=== PATIENT | female | born 1970 | race Caucasian/White ===

== ENCOUNTER → 2019-06-29 09:03 | Outpatient (BNVA) | payer OTHER, SELFPAY | PROVIDERS: Family Provider Nurse Practitioner Family; Visit Provider Nurse Practitioner Family | DX: R53.83 Other fatigue (principal) | CPT/HCPCS: 84443 ==

== ENCOUNTER 2019-10-26 15:55 | Outpatient (CLI) | payer BC, SELFPAY ==
--- NOTE | 2019-10-26 16:04 | XRR_ITS ---
PROCEDURE INFORMATION: Exam: XR Right Shoulder Exam date and time: 10/26/2019 4:26 PM Age: 49 years old Clinical indication: Pain; Shoulder; Right; Patient HX: No know trauma; Additional info: Shoulder pain rbto bell young/telma/katie aponte rtrm TECHNIQUE: Imaging protocol: XR Right shoulder. Views: 2 or more views. COMPARISON: No relevant prior studies available. FINDINGS: Bones/joints: There is no acute fracture or dislocation. The acromioclavicular joint alignment is appropriate. The subacromial joint space is well-preserved. The glenohumeral joint is unremarkable. The visualized ribs are intact. Lungs: The visualized lung apex is clear. Soft tissues: No calcific tendinopathy. XR/XR shoulder RT min 2V* [id number] IMPRESSION: No acute bony abnormality.
== END 2019-10-26 15:56 | disposition home or self-care (01) ==
LOC: RAD 16:00
PROVIDERS: Family Provider Nurse Practitioner Family; Visit Provider Nurse Practitioner Family
DX: M25.511 Pain in right shoulder (principal)
CPT/HCPCS: 73030

== ENCOUNTER → 2020-03-21 09:57 | Outpatient (BNVA) | payer BC, SELFPAY | PROVIDERS: Family Provider Nurse Practitioner Family; Visit Provider Nurse Practitioner Family | DX: R10.9 Unspecified abdominal pain (principal); R10.2 Pelvic and perineal pain | CPT/HCPCS: 81000; 85025 ==

== ENCOUNTER 2020-04-06 07:48 | Outpatient (CLI) | payer BC, SELFPAY ==
--- NOTE | 2020-04-06 08:00 | US_ITS ---
WS: [id number] Complete ABDOMINAL ULTRASOUND HISTORY: R10.9 - Unspecified abdominal pain COMPARISON: 01/26/2019 Liver: 13.1 cm in length. Liver is normal size and echogenicity with no mass or intrahepatic dilatati on. Gallbladder: Prior cholecystectomy. Pancreas: Normal size and echogenicity. CBD: 0.9 cm. Right kidney: 9.9 cm x 4.4 cm x 4.0 cm. No mass, cortical thickening or hydronephrosis. Left kidney: 10.3 cm x 5.0 cm x 6.5 cm. No mass, cortical thickening or hydronephrosis. Spleen: Not visualized. Abdominal aorta and IVC are within normal limits. No ascites. US/US abdomen complete* [id number] IMPRESSION: 1. Prior cholecystectomy. Mild physiologic dilatation of the common bile duct. 2. Spleen is not identified. Probably obscured by GI content.
--- NOTE | 2020-04-06 08:45 | US_ITS ---
WS: [id number] TRANSABDOMINAL PELVIC AND TRANSVAGINAL PELVIC ULTRASOUND HISTORY: R10.2 - Pelvic and perineal pain COMPARISON: None available. Prior hysterectomy. Right ovary: 1.0 cm x 0.9 cm x 0.6 cm. Very small caliber RIGHT ovary as expected. No solid mass. Nor mal vascularity. Left ovary: Not visualized. No adnexal mass. No free fluid. US/US pelvic with transvaginal IMPRESSION: 1. Status post hysterectomy. No pelvic masses. 2. Small atrophic RIGHT ovary. LEFT ovary is not identified.
== END 2020-04-06 07:49 | disposition home or self-care (01) ==
LOC: US 07:53
PROVIDERS: PCP Nurse Practitioner Family; Visit Provider Nurse Practitioner Family
DX: R10.9 Unspecified abdominal pain (principal); R10.2 Pelvic and perineal pain; Z90.710 Acquired absence of both cervix and uterus; N83.311 Acquired atrophy of right ovary; Z90.49 Acquired absence of other specified parts of digestive tract
CPT/HCPCS: 76700; 76830; 76856

== ENCOUNTER → 2020-04-11 15:15 | Outpatient (BNVA) | payer BC, SELFPAY | PROVIDERS: PCP Nurse Practitioner Family; Visit Provider Nurse Practitioner Family | DX: R10.811 Right upper quadrant abdominal tenderness (principal) | CPT/HCPCS: 82977; 83615; 84450; 84460 ==

== ENCOUNTER → 2020-05-11 09:53 | Outpatient (BNVA) | payer BC, SELFPAY | PROVIDERS: PCP Nurse Practitioner Family; Visit Provider Dermatology | DX: Z13.6 Encounter for screening for cardiovascular disorders (principal) | CPT/HCPCS: 80061; 82947; 82977; 83036; 83615; 84450; 84460 ==

== ENCOUNTER 2020-05-19 07:55 | Outpatient (CLI) | payer BC, SELFPAY ==
--- NOTE | 2020-05-19 08:00 | CT_ITS ---
WS: [id number] CT ABDOMEN PELVIS TECHNIQUE: Contrast-enhanced CT of the abdomen and pelvis with coronal and sagittal reformatted image s. CLINICAL INFORMATION: R BACK PAIN S/P CHOLECYSTECTOMY COMPARISON: Ultrasound March 2020 DLP: 1100.[address] scans at [facility] use at least one of these dose optimization techniques: automat ed exposure control; mA and/or kV adjustment per patient size (includes targeted exams where dose is matched to clinical indication); or iterative reconstruction. FINDINGS: Postoperative changes cholecystectomy. Prior hysterectomy and appendectomy. Mild diffuse fatty infilt ration liver. Normal portal vein and splenic vein. No fluid in the gallbladder fossa. Normal tapering of the common bile duct. Pancreatic head is normal in appearance. Normal portal veins and splenic ve in. Lung bases are well aerated. Normal spleen. Adrenal glands are normal. Normal renal parenchymal enhan cement. No hydronephrosis. Tiny right renal cysts. Normal caliber abdominal aorta. No abdominal lymphadenopathy. Tiny fat-containing umbilical hernia. S cattered stool in the colon. No evidence of large or small bowel obstruction. Urine distended bladder . No free fluid in the pelvis. Normal lumbar spine. CT/CT abdomen pelvis w con* [id number] IMPRESSION: 1. Postoperative changes cholecystectomy. No fluid in the gallbladder fossa. N ormal tapering of the common bile duct. 2. Mild diffuse fatty infiltration of the liver. 3. Prior postoperative changes hysterectomy and appendectomy. 4. Mild constipation. No evidence of small or large bowel obstruction. 5. No free fluid in the pelvis.
[2020-05-19] MEDS: iohexol 300 mg/mL 50 mL Btl PO (08:40)
[2020-05-19] MEDS: iohexol 300 mg/mL 100 mL Btl IV (09:32)
== END 2020-05-19 07:56 | disposition home or self-care (01) ==
LOC: RADWPI 08:04
PROVIDERS: PCP Nurse Practitioner Family; Visit Provider Surgery
DX: K59.00 Constipation, unspecified (principal); K76.0 Fatty (change of) liver, not elsewhere classified; Z90.49 Acquired absence of other specified parts of digestive tract
CPT/HCPCS: 74177; Q9967

== ENCOUNTER 2020-11-10 08:01 | Outpatient (CLI) | payer BC, SELFPAY ==
--- NOTE | 2020-11-10 08:00 | USCV_ITS ---
Rose Gamino Age: 50 Gender: F : 1970 Exam Date: 11/10/2020 08:18 Ordering Phys: Louisa Miguel Technologist: Tiffany Andrea Exam Location: [facility] [place]ication: PAINFUL SWELLING LEGS HISTORY: History of superficial thrombus Lt lower leg. Bilateral leg swelling with pain at this time PROCEDURES: The venous duplex Doppler examination of both lower extremities was performed in the standard fashion. The following venous structures were evaluated: common femoral vein, profunda vein, proximal portion of the greater saphenous vein, superficial femoral vein, and the popliteal vein. In addition, the posterior tibial and peroneal trunk were evaluated. Serial compression, augmentation maneuvers, and spectral Doppler flow evaluation were performed. FINDINGS: Normal 2-D Doppler and augmentation and compressibility throughout the lower extremity venous structures. Additional imaging through the proximal calf veins also reveals no thrombus. Limited evaluation of the greater saphenous vein is patent with no thrombus. CONCLUSIONS No DVT bilateral lower extremities. Dr. Tonja Torres DO (Electronically Signed) Final Date: 10 November 2020 09:56 S
== END 2020-11-10 08:02 | disposition home or self-care (01) ==
PROVIDERS: PCP Nurse Practitioner Family; Visit Provider Nurse Practitioner Family
DX: I82.409 Acute embolism and thrombosis of unspecified deep veins of unspecified lower extremity (principal)
CPT/HCPCS: 93970

== ENCOUNTER → 2020-12-05 09:13 | Outpatient (BNVA) | payer BC, SELFPAY | PROVIDERS: PCP Nurse Practitioner Family; Visit Provider Nurse Practitioner Family | DX: I83.813 Varicose veins of bilateral lower extremities with pain (principal); Z79.899 Other long term (current) drug therapy | CPT/HCPCS: 80053; 80061; 86140 ==

== ENCOUNTER → 2021-04-05 11:44 | Outpatient (BNVA) | payer BC, SELFPAY | PROVIDERS: PCP Nurse Practitioner Family; Visit Provider Nurse Practitioner Family | DX: R05.9 Cough, unspecified (principal); Z20.822 Contact with and (suspected) exposure to COVID-19 | CPT/HCPCS: 87486; 87581; 87633; 87635 ==

== ENCOUNTER 2021-04-10 13:06 | Outpatient (CLI) | payer SELFPAY ==
[2021-04-10 08:55] VITALS: BMI 21.4
[2021-04-10 15:10] VITALS: BP 110/61; PULSE 85; RESP 16; TEMP 36.7; O2SAT 97
== END 2021-04-10 13:07 | disposition home or self-care (01) ==
LOC: OPS 13:07
PROVIDERS: PCP Nurse Practitioner Family; Visit Provider Nurse Practitioner Family
DX: U07.1 COVID-19 (principal)
CPT/HCPCS: 96365

== ENCOUNTER → 2022-02-19 10:36 | Outpatient (BNVA) | payer OTHER, SELFPAY | PROVIDERS: PCP Nurse Practitioner Family; Visit Provider Nurse Practitioner Family | DX: J02.0 Streptococcal pharyngitis (principal) | CPT/HCPCS: 87880 ==

== ENCOUNTER → 2023-04-04 08:30 | Outpatient (BNVA) | payer OTHER, SELFPAY | PROVIDERS: PCP Nurse Practitioner Family; Visit Provider Nurse Practitioner Family | DX: S16.1XXA Strain of muscle, fascia and tendon at neck level, initial encounter (principal); K58.1 Irritable bowel syndrome with constipation; F41.9 Anxiety disorder, unspecified; I10 Essential (primary) hypertension; E78.5 Hyperlipidemia, unspecified; R53.83 Other fatigue; Z12.4 Encounter for screening for malignant neoplasm of cervix; R32 Unspecified urinary incontinence; Z00.00 Encounter for general adult medical examination without abnormal findings; Z78.9 Other specified health status; N81.11 Cystocele, midline; X58.XXXA Exposure to other specified factors, initial encounter | CPT/HCPCS: 80053; 80061; 85025; 87070; 87205; 88175 ==

== ENCOUNTER 2023-04-29 08:01 | Outpatient (CLI) | payer OTHER, SELFPAY ==
--- NOTE | 2023-04-29 08:04 | MM_ITS ---
WS: [id number] BILATERAL SCREENING DIGITAL BREAST MAMMOGRAPHY WITH SHANNAN DISPLACEMENT VIEWS. CAD PERFORMED. HISTORY: Z12.39 - Encounter for other screening for malignant neop... COMPARISON: 01/30/2017 Bilateral craniocaudal and mediolateral oblique views are performed with tomosynthesis and SM. Shannan displacement views in CC and MLO projection also performed. Breasts composition: There are scattered areas of fibroglandular density. Implants are intact. No capsular contraction. No extravasation or collapse. No suspicious masses or c alcifications within either breast. IMPRESSION: MM/[place] [id number] BI-RADS: 2-Benign FOLLOW-UP: 1 Year Follow-up
== END 2023-04-29 08:02 | disposition home or self-care (01) ==
LOC: RAD 08:01
PROVIDERS: PCP Nurse Practitioner Family; Visit Provider Nurse Practitioner Family
DX: Z12.39 Encounter for other screening for malignant neoplasm of breast (principal); R92.323 Mammographic fibroglandular density, bilateral breasts
CPT/HCPCS: 77063; 77067

== ENCOUNTER → 2023-08-16 10:58 | Outpatient (BNVA) | payer OTHER, SELFPAY | PROVIDERS: PCP Nurse Practitioner Family; Visit Provider Nurse Practitioner Family | DX: I10 Essential (primary) hypertension (principal); E78.5 Hyperlipidemia, unspecified | CPT/HCPCS: 80053; 80061 ==

== ENCOUNTER → 2023-08-26 08:32 | Outpatient (BNVA) | payer OTHER, SELFPAY | PROVIDERS: PCP Nurse Practitioner Family; Visit Provider Nurse Practitioner Family | DX: E78.2 Mixed hyperlipidemia (principal) | CPT/HCPCS: 80061 ==

== ENCOUNTER → 2023-12-02 08:51 | Outpatient (BNVA) | payer OTHER, SELFPAY | PROVIDERS: PCP Nurse Practitioner Family; Visit Provider Nurse Practitioner Family | DX: E78.2 Mixed hyperlipidemia (principal) | CPT/HCPCS: 80061 ==

== ENCOUNTER → 2025-01-18 07:38 | Outpatient (BNVA) | payer OTHER, SELFPAY | PROVIDERS: PCP Nurse Practitioner Family; Visit Provider Nurse Practitioner Family | DX: R53.83 Other fatigue (principal); I10 Essential (primary) hypertension; R00.2 Palpitations; E78.2 Mixed hyperlipidemia | CPT/HCPCS: 80053; 80061; 84439; 84443; 85025 ==

== ENCOUNTER 2025-01-22 16:29 | Outpatient (CLI) | payer OTHER, SELFPAY ==
--- NOTE | 2025-01-22 16:35 | XRR_ITS ---
PROCEDURE INFORMATION: Exam: XR Cervical Spine Exam date and time: 01/22/2025 4:41 PM Age: 54 years old Clinical indication: Pain; Cervicalgia; Additional info: M54.2 - cervicalgia TECHNIQUE: Imaging protocol: Radiologic exam of the cervical spine. Views: 2 or 3 views. COMPARISON: CR XR shoulder RT min 2V* [id number] 10/26/2019 4:22 PM FINDINGS: Bones/joints: The C5-C6 and C6-C7 levels demonstrate severe degenerative disc disease. 1.5 mm of C5 retrolisthesis relative to C4. No malalignment. No fracture or dislocation. Soft tissues: Unremarkable. XR/XR cervical spine 3V* [id number] IMPRESSION: 1. The C5-C6 and C6-C7 levels demonstrate severe degenerative disc disease. 2. No fracture or dislocation.
== END 2025-01-22 16:30 | disposition home or self-care (01) ==
LOC: RAD 16:30
PROVIDERS: PCP Nurse Practitioner Family; Visit Provider Nurse Practitioner Family
DX: M50.322 Other cervical disc degeneration at C5-C6 level (principal); M50.323 Other cervical disc degeneration at C6-C7 level
CPT/HCPCS: 72040

== ENCOUNTER 2025-01-25 15:56 | Outpatient (CLI) | payer OTHER, SELFPAY ==
--- NOTE | 2025-01-25 16:00 | US_ITS ---
WS: [id number] THYROID ULTRASOUND HISTORY: Low T4 levels. COMPARISON: 01/30/2018 Right lobe: 0.9 cm x 0.9 cm x 3.7 cm (w x ap x l). Volume: 1.3 cm3. Small caliber heterogeneous gland. No mass or increased vascularity. Margins are slightly lobulated. There is a small colloid cyst in the posterior gland measuring 2 mm. Left lobe: 1.2 cm x 0.7 cm x 3.4 cm (w x ap x l). Volume: 1.3 cm3. Small caliber gland. Heterogeneous gland with a few small colloid cysts. No dominant nodule. No echogenic foci. Isthmus: 0.2 cm. US/US thyroid [id number] IMPRESSION: TI-RADS 2; no FNA or follow-up necessary. Stable thyroid ultrasound since 01/30
== END 2025-01-25 15:57 | disposition home or self-care (01) ==
LOC: RAD 15:58
PROVIDERS: PCP Nurse Practitioner Family; Visit Provider Nurse Practitioner Family
DX: R79.89 Other specified abnormal findings of blood chemistry (principal); E04.2 Nontoxic multinodular goiter
CPT/HCPCS: 76536

== ENCOUNTER → 2025-02-16 08:46 | Outpatient (BNVA) | payer OTHER, SELFPAY | PROVIDERS: PCP Nurse Practitioner Family; Visit Provider Nurse Practitioner Family | DX: R03.0 Elevated blood-pressure reading, without diagnosis of hypertension (principal); R00.2 Palpitations | CPT/HCPCS: 80053; 84439; 84443 ==

== ENCOUNTER → 2025-02-25 17:24 | Outpatient (BNVA) | payer OTHER, SELFPAY | PROVIDERS: PCP Nurse Practitioner Family; Referring Provider Nurse Practitioner Family; Visit Provider Internal Medicine Cardiovascular Disease | DX: R06.02 Shortness of breath (principal) | CPT/HCPCS: 36415; 83880; 85378 ==

== ENCOUNTER → 2025-03-03 11:37 | Outpatient (BNVA) | payer OTHER, SELFPAY | PROVIDERS: PCP Nurse Practitioner Family; Visit Provider Nurse Practitioner Family | DX: N39.0 Urinary tract infection, site not specified (principal) | CPT/HCPCS: 81000; 87086 ==

== ENCOUNTER 2025-03-05 13:38 | Outpatient (CLI) | payer OTHER, SELFPAY ==
--- NOTE | 2025-03-05 14:00 | USCV_ITS ---
Rose Gamino Age: 54 Gender: F : 1970 Exam Date: 03/05/2025 14:13 Ordering Phys: Jayme Melo MD ([email or web address]) Technologist: RISA Exam Location: [facility] – [place] Indication: changes in vision Risk Factors: Previous Vascular Surgery: Right Brachial BP: / Left Brachial BP: / Right Left Velocity (cm/s) Spectral Plaque Velocity (cm/s) Spectral Plaque Syst/Diast Broadening Syst/Diast Broadening 91.50/ 25.40 Prox CCA 111.10/ 37.20 110.90/35.80 Mid CCA 94.10 / 31.50 91.50/ 30.60 Distal CCA 84.80 / 29.60 83.20/ 24.00 Prox ICA 87.40 / 33.40 84.50/ 25.20 Mid ICA 74.20 / 29.80 81.40/ 26.60 Distal ICA 66.80 / 29.80 98.70 ECA 62.60 0.90 ICA/CCA 1.00 Antegrade Vertebral Antegrade 31.70/ 10.00 cm/s 62.10/ 21.30 cm/s Tri Subclavian Tri 81.70 125.9 0 CONCLUSIONS Right ICA stenosis <50%. Mild atheromatous plaque right carotid bulb/ICA. Left ICA stenosis <50%. Mild atheromatous plaque left carotid bulb/ICA. Intimal thickening in the common carotid arteries and internal carotid arteries bilaterally. Normal antegrade Doppler flow noted in the right vertebral artery. Normal antegrade Doppler flow noted in the left vertebral artery. Cheo Parker MD (Electronically Signed) Final Date: 05 March 2025 18:50 S
== END 2025-03-05 13:39 | disposition home or self-care (01) ==
LOC: RAD 13:39
PROVIDERS: PCP Nurse Practitioner Family; Visit Provider Internal Medicine Cardiovascular Disease
DX: H53.9 Unspecified visual disturbance (principal); I65.23 Occlusion and stenosis of bilateral carotid arteries
CPT/HCPCS: 93880